=== PATIENT | male | born 1975 | race Caucasian/White ===

== ENCOUNTER → 2017-01-30 | Outpatient (REF) | payer OTHER ==
[~2017-01-30] MED LIST: No Historical Meds
== END ==
LOC: M SFHCLERA 10:23
PROVIDERS: ATTEND Physician Assistant
DX: Z00.00 Encounter for general adult medical examination without abnormal findings (principal)

== ENCOUNTER → 2017-01-31 | Outpatient (CLI) | payer OTHER ==
[2017-01-31 15:27] LABS: MEAN CORPUSCULAR HEMOGLOBIN 31.1 pg (27.0-33.0); MEAN CORPUSCULAR HGB CONC 33.6 g/dl (32.0-36.5); MEAN CORPUSCULAR VOLUME 92.5 fl (80.0-96.0); RED CELL DISTRIBUTION WIDTH 12.3 % (11.5-14.5); WHITE BLOOD COUNT 5.8 10^3/uL (4.0-10.0)
[2017-01-31 15:30] LABS: ALBUMIN 4.3 GM/DL (3.2-5.2); ALBUMIN/GLOBULIN RATIO 1.43 (1.00-1.93); ALKALINE PHOSPHATASE 63 U/L (45-117); ALT/SGPT 30 U/L (12-78); ANION GAP 7 MEQ/L (8-16); AST/SGOT 17 U/L (15-37); BILIRUBIN,TOTAL 0.8 MG/DL (0.2-1.0); BLOOD UREA NITROGEN 20 MG/DL (7-18); CALCIUM LEVEL 9.6 MG/DL (8.5-10.1); CARBON DIOXIDE LEVEL 31 MEQ/L (21-32); CHLORIDE LEVEL 102 MEQ/L (98-107); CHOLESTEROL LEVEL 137 MG/DL (<200); CREATININE FOR GFR 1.09 MG/DL (0.70-1.30); GLOMERULAR FILTRATION RATE > 60.0 (>60); GLUCOSE, FASTING 79 MG/DL (70-105); POTASSIUM SERUM 4.6 MEQ/L (3.5-5.1); SODIUM LEVEL 140 MEQ/L (136-145); TOTAL PROTEIN 7.3 GM/DL (6.4-8.2); TRIGLYCERIDES LEVEL 80 MG/DL (<150)
== END ==
LOC: M WUC 12:24
PROVIDERS: ATTEND Physician Assistant
DX: Z00.00 Encounter for general adult medical examination without abnormal findings (principal)

== ENCOUNTER → 2018-07-16 | Outpatient (REF) | payer OTHER ==
[2018-07-22 00:07] LABS: HSV TYPE I IgG SPECIFIC <0.91 index (0.00-0.90); HSV TYPE I IgM AB <1:10 titer (<1:10); HSV TYPE II IgG SPECIFIC 3.57 index (0.00-0.90); HSV TYPE II IgM ABY <1:10 titer (<1:10)
== END ==
LOC: M SFHCPLAZ 15:57
PROVIDERS: ATTEND Family Medicine
DX: K03.2 Erosion of teeth (principal)

== ENCOUNTER → 2018-09-16 | Outpatient (REF) | payer OTHER ==
[2018-09-16 15:49] LABS: ALBUMIN 4.2 GM/DL (3.2-5.2); ALT/SGPT 25 U/L (12-78); BILIRUBIN,TOTAL 0.7 MG/DL (0.2-1.0); BLOOD UREA NITROGEN 16 MG/DL (7-18); CALCIUM LEVEL 9.3 MG/DL (8.5-10.1); CARBON DIOXIDE LEVEL 32 MEQ/L (21-32); CHLORIDE LEVEL 105 MEQ/L (98-107); CREATININE FOR GFR 1.07 MG/DL (0.70-1.30); GLOMERULAR FILTRATION RATE > 60.0 (>60); GLUCOSE, FASTING 88 MG/DL (70-100); POTASSIUM SERUM 4.2 MEQ/L (3.5-5.1); SODIUM LEVEL 140 MEQ/L (136-145)
== END ==
LOC: M SFHCPLAZ 13:12
PROVIDERS: ATTEND Family Medicine
DX: B35.1 Tinea unguium (principal)

== ENCOUNTER → 2018-10-09 | Outpatient (CLI) | payer OTHER ==
--- NOTE | 2018-10-09 15:09 | REP ---
MRI brain without contrast: History: Resting tremor . Comparison study: December 04, 2011. Technique: Axial and sagittal imaging planes are utilized for T1 and T2-weighted scans. Sequences include spin-echo, fast spin echo, FLAIR, and diffusion weighted sequences. MRI findings: No bony calvarial lesion is seen. Craniocervical junction and upper cervical cord are normal in appearance. There is no MR evidence of significant paranasal sinus disease. No intraorbital abnormality is seen. There is again evidence of volume loss in the left occipital and posterior temporal lobes with enlargement of the occipital horn and body of the left ventricle unchanged from the 12/09/2011 prior study. Rene-white differentiation pattern is intact above and below the tentorium. There is no evidence of intracranial hemorrhage. No mass, infarction, extra-axial fluid collection or midline shift is seen. No abnormal white matter lesion is seen. Impression: Mild volume loss in the left occipital and temporal lobe again seen with enlargement of the occipital horn of the left lateral ventricle unchanged from the 2012 prior study. Otherwise negative noncontrast brain MRI study. Electronically Signed by Zhen Navarrete MD 10/09/2018 03:01 P
--- NOTE | 2018-10-09 15:27 | REP ---
MRI cervical spine without contrast: Limited study. History: Resting tremor. No comparison cervical spine imaging. Technique: T1 and T2-weighted sagittal images were accomplished although there is some motion artifact. The patient became claustrophobic and could not continue the scan. Only these two sequences were acquired. Findings: Cortical and medullary bone signal intensity are normal. Vertebral body heights are preserved. Alignment is normal. There is evidence of right lateral disc bulge at C3-4. No cord compression is seen. No cord lesion is noted. Impression: Limited imaging as above. Right lateral disc bulging with uncovertebral spurring suspected at C3-4. Electronically Signed by Zhen Navarrete MD 10/09/2018 03:37 P
== END ==
LOC: M PLARAD 11:30
PROVIDERS: ATTEND Family Medicine
DX: R25.9 Unspecified abnormal involuntary movements (principal); M50.20 Other cervical disc displacement, unspecified cervical region

== ENCOUNTER 2019-07-09 14:54 | Emergency (ER) | payer OTHER ==
[~2019-07-09] VITALS: Ht 198.1 cm; Wt 117.5 kg
--- NOTE | 2019-07-09 16:34 | REP ---
CT brain without contrast: History: Vision changes. Comparison MRI study of the brain is from October 09, 2018. Findings: Digital preliminary scouts radiograph is unremarkable. The bony calvarium is intact. Visualized paranasal sinuses are clear. No intraorbital abnormalities appreciated. On soft tissue window settings, there is asymmetry in the lateral ventricles again noted with the left occipital horn and the body of the left lateral ventricle larger than the right. This is unchanged from prior studies. There is no evidence of intracranial hemorrhage. No mass lesion is seen. No midline shift is observed. No extra-axial fluid collection is appreciated. Impression: No acute intracranial abnormality. Findings unchanged from comparison MRI study October 09, 2018. Electronically Signed by Zhen Navarrete MD 07/09/2019 04:46 P
[2019-07-09 16:35] LABS: BASO # 0.1 10^3/uL (0.0-0.2); BASO % 0.6 % (0.0-1.0); EOS # 0.5 10^3/uL (0.0-0.5); EOS % 5.8 % (0.0-3.0); HEMATOCRIT 44.2 % (42.0-52.0); HEMOGLOBIN 14.7 g/dl (13.5-17.5); LYMPH # 2.4 10^3/uL (1.5-5.0); LYMPH % 27.8 % (24.0-44.0); MEAN CORPUSCULAR HEMOGLOBIN 30.3 pg (27.0-33.0); MEAN CORPUSCULAR HGB CONC 33.3 g/dl (32.0-36.5); MEAN CORPUSCULAR VOLUME 91.1 fl (80.0-96.0); MONO # 0.7 10^3/uL (0.0-0.8); MONO % 7.7 % (0.0-5.0); NEUTROPHILS % 57.6 % (36.0-66.0); PLATELET COUNT, AUTOMATED 307 10^3/uL (150-450); RED BLOOD COUNT 4.85 10^6/uL (4.30-6.10); WHITE BLOOD COUNT 8.6 10^3/uL (4.0-10.0)
[2019-07-09 16:52] LABS: HEMOGLOBIN A1c 5.8 %
[2019-07-09 17:14] LABS: CALCIUM LEVEL 9.4 MG/DL (8.5-10.1); CREATININE FOR GFR 1.5 MG/DL (0.70-1.30); FREE T4 1.56 NG/DL (0.76-1.46); GLOMERULAR FILTRATION RATE 54.9 (>60); POTASSIUM SERUM 4.1 MEQ/L (3.5-5.1); THYROID STIMULATING HORMONE 0.495 uIU/ML (0.358-3.740)
[2019-07-09 18:07] VITALS: BP 128/83
== END 2019-07-09 18:07 | disposition home or self-care (01) ==
LOC: M ED 14:54
DX: H53.8 Other visual disturbances (principal); E07.9 Disorder of thyroid, unspecified; R79.89 Other specified abnormal findings of blood chemistry; G20 Parkinson's disease; Z88.8 Allergy status to other drugs, medicaments and biological substances; Z91.013 Allergy to seafood; Z91.018 Allergy to other foods

== ENCOUNTER 2019-07-19 08:29 | Inpatient (IN) | payer OTHER ==
[~2019-07-19] VITALS: Ht 188 cm; Wt 116.6 kg
[2019-07-19] MEDS ORDERED: NS 250 ML IV ONE (08:45)
[2019-07-19] MEDS: ALBUTEROL 90 MCG/ACT 8GM HFA INHALER INH SCH ×3 (08:45→09:20)
[2019-07-19] MEDS: DOCUSATE SODIUM 100 MG CAP PO SCH ×2 (09:00→20:26)
[2019-07-19] MEDS ORDERED: ENOXAPARIN 40 MG/0.4 ML SYRINGE (J1650) SC SCH (09:00)
[2019-07-19 09:10] LABS: BASO # 0.1 10^3/uL (0.0-0.2); BASO % 0.8 % (0.0-1.0); EOS # 0.5 10^3/uL (0.0-0.5); EOS % 5.7 % (0.0-3.0); HEMATOCRIT 40.9 % (42.0-52.0); HEMOGLOBIN 13.2 g/dl (13.5-17.5); LYMPH # 3.1 10^3/uL (1.5-5.0); LYMPH % 33.3 % (24.0-44.0); MEAN CORPUSCULAR HEMOGLOBIN 30.1 pg (27.0-33.0); MEAN CORPUSCULAR HGB CONC 32.3 g/dl (32.0-36.5); MEAN CORPUSCULAR VOLUME 93.4 fl (80.0-96.0); MONO # 0.6 10^3/uL (0.0-0.8); MONO % 5.9 % (0.0-5.0); NEUTROPHILS # 4.9 10^3/uL (1.5-8.5); NEUTROPHILS % 53.2 % (36.0-66.0); PLATELET COUNT, AUTOMATED 258 10^3/uL (150-450); RED BLOOD COUNT 4.38 10^6/uL (4.30-6.10); WHITE BLOOD COUNT 9.3 10^3/uL (4.0-10.0)
[2019-07-19] MEDS ORDERED: PROAAER10 INH (09:25)
[2019-07-19] MEDS ORDERED: AMAN100T PO (09:25)
[2019-07-19] MEDS ORDERED: MIRA0.254 PO (09:25)
[2019-07-19] MEDS ORDERED: COMMENTS (09:25)
[2019-07-19] MEDS ORDERED: AMOX875T PO (09:25)
[2019-07-19] MEDS ORDERED: ISOVUE-370 76% 100ML VIAL (Q9967) As Ordered ONE (09:27)
[2019-07-19] MEDS ORDERED: PIPERACILLIN/TAZOBACTAM SOD 4.5 GM in D5W MINI-BAG PLUS 50 ML IV ONE (09:30)
[2019-07-19 09:36] LABS: INR 1.01; PARTIAL THROMBOPLASTIN TIME 26.3 SECONDS (25.0-38.4)
[2019-07-19 09:39] LABS: D-DIMER QUANT 3084.2 ng/ml (<500)
[2019-07-19 09:47] LABS: ACETAMINOPHEN LEVEL < 2.0 UG/ML (10.0-30.0); ALBUMIN 4.1 GM/DL (3.2-5.2); ALT/SGPT 54 U/L (12-78); BILIRUBIN,DIRECT 0.2 MG/DL (0.0-0.2); BILIRUBIN,TOTAL 0.5 MG/DL (0.2-1.0); CK-MB VALUE MASS 2.4 NG/ML (<3.6); CPK CREATINE PHOSPHOKINASE 126 U/L (39-308); ETHYL ALCOHOL (ETHANOL) < 0.003 % (0.000-0.010); LDH LACTATE DEHYDROGENASE 206 U/L (87-241); NT-PRO BNP 49 PG/ML (<125); SALICYLATE LEVEL < 1.7 MG/DL (5.0-30.0); THYROID STIMULATING HORMONE 0.405 uIU/ML (0.358-3.740); THYROXINE (T4) 9.9 UG/DL (4.5-12.0); TOTAL PROTEIN 7.5 GM/DL (6.4-8.2); TROPONIN I < 0.02 NG/ML (< 0.10)
--- NOTE | 2019-07-19 10:07 | REP ---
CHEST, SINGLE VIEW: There is no evidence of acute infiltrate. No pleural effusion is seen. The heart is normal in size. The mediastinal silhouette is unremarkable. The visualized osseous structures are intact. IMPRESSION: No acute pulmonary disease. Electronically Signed by Jayy Rene MD 07/19/2019 03:14 P
--- NOTE | 2019-07-19 10:25 | REP ---
CT BRAIN WITHOUT CONTRAST: CT brain performed without IV contrast. Coronal reconstruction images are performed. Comparison 07/09/2019. There is stable chronic volume loss. No acute intracranial hemorrhage is seen. There is no midline shift or mass effect. Rene-white differentiation is well maintained. Bone window examination is unremarkable. Visualized paranasal sinuses and mastoid air cells are clear. IMPRESSION: Stable volume loss with no acute intracranial findings and no change since prior study of 07/09/2019. Electronically Signed by Jayy Rene MD 07/19/2019 03:15 P
--- NOTE | 2019-07-19 10:37 | REP ---
CT CHEST WITH IV CONTRAST: TECHNIQUE: Axial contrast enhanced images from the thoracic inlet to the upper abdomen using 100 mL Isovue 370 intravenous contrast material with multiplanar reformations. The lungs are clear with no infiltrate. There is no pneumothorax or pleural effusion. No pericardial effusion is seen. There is no mediastinal, hilar, or chest wall lymphadenopathy. The heart is normal in size. Thoracic aorta is normal in caliber with no dissection. Visualized osseous structures are intact. IMPRESSION: Negative CT of the chest with no abnormalities identified. Electronically Signed by Jayy Rene MD 07/19/2019 03:15 P
--- NOTE | 2019-07-19 10:47 | REP ---
CT ABDOMEN AND PELVIS WITH IV CONTRAST: TECHNIQUE: Axial contrast enhanced images from the lung bases to the pubic symphysis using 100 mL Isovue 370 intravenous contrast material with multiplanar reformations. The liver demonstrates a small calcified granuloma in the left lobe. No other liver abnormality is seen. Spleen is normal in size with no traumatic injury identified. Adrenals, pancreas, and kidneys are unremarkable. The abdominal aorta is normal in caliber with no aneurysm. There is no adenopathy. There is no free air or free fluid. There is no bowel wall thickening. The appendix is normal. No pelvic mass is seen. Urinary bladder is mildly distended and appears unremarkable. Visualized osseous structures appear intact. IMPRESSION: Negative CT abdomen and pelvis with no traumatic abnormalities identified. No free fluid. Electronically Signed by Jayy Rene MD 07/19/2019 03:15 P
[2019-07-19] MEDS ORDERED: MOM 30ML SUSPENSION UDC PO PRN (11:30)
[2019-07-19 13:00] VITALS: BP 145/72
[2019-07-19] MEDS ORDERED: ALBUTEROL 90 MCG/ACT 8GM HFA INHALER INH PRN (13:15)
[2019-07-19 13:21] LABS: C REACTIVE PROTEIN QUANTITATIV 0.3 MG/DL (0.00-0.30); CK-MB VALUE MASS 2.5 NG/ML (<3.6); MB/CK RELATIVE INDEX 0.95 (< OR =4); TROPONIN I 0.02 NG/ML (< 0.10)
[2019-07-19 13:41] LABS: AMPHETAMINES LEVEL URINE NEGATIVE (NEGATIVE); BARBITURATES URINE NEGATIVE (NEGATIVE); BENZODIAZEPINES URINE NEGATIVE (NEGATIVE); CANNABINOIDS URINE NEGATIVE (NEGATIVE); COCAINE METABOLITE URINE NEGATIVE (NEGATIVE); METHADONE URINE NEGATIVE (NEGATIVE); OPIATES URINE NEGATIVE (NEGATIVE); PHENCYCLIDINE URINE NEGATIVE (NEGATIVE)
[2019-07-19] MEDS ORDERED: MORPHINE 2 MG/ML 1ML VIAL (J2270) IV PRN (14:00)
--- NOTE | 2019-07-19 15:09 | REP ---
RIGHT HUMERUS, THREE VIEWS: There is no evidence of an acute fracture, dislocation or intrinsic bone disease. IMPRESSION: No fracture or dislocation. Electronically Signed by Jayy Rene MD 07/19/2019 03:21 P
--- NOTE | 2019-07-19 15:44 | HPEPDOC ---
[facility] Medical History & Physical Date of Admission Jul 19, 2019 Date of Service: Jul 19, 2019 Primary Care Physician: KAE LEES DO Attending Physician: RM DUONG DO History and Physical CHIEF COMPLAINT: Fall at home HISTORY OF PRESENT ILLNESS: Kevin Bower is a 43 YO M with history of Parkinsons disease who presents via EMS for unwitnessed fall at home. ED staff report that he was very agitated and was found to have oxygen saturation in the low 80s on arrival. Per EMS, he was found to have fallen at home from the bed to the floor. He does not remember any of the events surrounding his fall. I think he remembers is getting into the ambulance and arriving at the hospital. He denies any recent fevers, chills, nausea, vomiting or diarrhea. He does report that he has sharp, aching chest pain in his lower chest that radiates to his back. This has been ongoing for some time now. He is unsure whether he has shortness of breath, but he does state that he gets this pain at the very end of inspiration. The chest pain is not reproducible by palpation. The patient denies any cardiac history. PAST MEDICAL HISTORY: 1. Parkinson's disease PAST SURGICAL HISTORY: none SOCIAL HISTORY: Former smoker. Quit 03/2018. Denies alcohol, drugs FAMILY HISTORY: Father: alive 64 yrs, no known medical problems Mother: alive 61 yrs, Bone cancer; Asthma; breast cancer, diagnosed with Hypertension, Other malignant neoplasm of unspecified site Siblings: alive 30 yrs, Seizures 1 sister(s) . GF - brain tumor; Aunt - colon cancer, Mother -breast CA, sarcodosis, sister- ep ilepsy. ALLERGIES: Please see below. REVIEW OF SYSTEMS: CONSTITUTIONAL: Feels well. No fever or chills HEENT: denies vision changes, no sinus problems, denies any trouble swallowing CARDIOVASCULAR: Reports sharp, aching chest pain that radiates to his back RESPIRATORY: Denies any shortness of breath GENITOURINARY: No dysuria MUSCULOSKELETAL: Denies any joint/muscle pain GASTROINTESTINAL: Denies abdominal pain, no nausea/vomiting/diarrhea SKIN: No new rashes or lesions NEUROLOGICAL: No loss of sensation PSYCHIATRIC: Reports normal mood, no delusions or hallucinations ENDOCRINE: No hot/cold intolerance HEMATOLOGIC/LYMPHATIC: No easy bruising, no lumps/bumps ALLERGIC/IMMUNOLOGIC: No sinus symptoms HOME MEDICATIONS: Please see below. PHYSICAL EXAMINATION: VITAL SIGNS: Please see below. GENERAL APPEARANCE: Laying in bed, appears stated age, no acute distress, calm, cooperative HEENT: Very poor dentition, EOMI, PERRLA, neck is supple with no thyromegaly or lymphadenopathy RESPIRATORY: Lungs are clear to auscultation bilaterally with no adventitious breath sounds appreciated CARDIOVASCULAR: no JVD, RRR,no murmurs/rubs/gallops ABDOMEN: Soft, nontender to palpation in all four quadrants, no masses/organomegaly EXTREMITIES: no clubbing, cyanosis or edema noted NEUROLOGICAL: Fine tremor in both upper extremities, strength 5 out of 5 in both upper and lower extremities, otherwise cranial nerves II through XII are intact PSYCHIATRIC: normal mood/affect Skin: No rashes or ulcers. LN: No significant cervical or inguinal lymphadenopathy LABORATORY DATA: See below. IMAGING: CT BRAIN WITHOUT CONTRAST: CT brain performed without IV contrast. Coronal reconstruction images are performed. Comparison 07/09/2019. There is stable chronic volume loss. No acute intracranial hemorrhage is seen. There is no midline shift or mass effect. Rene-white differentiation is well maintained. Bone window examination is unremarkable. Visualized paranasal sinuses and mastoid air cells are clear. IMPRESSION: Stable volume loss with no acute intracranial findings and no change since prior study of 07/09/2019. CXR: CHEST, SINGLE VIEW: There is no evidence of acute infiltrate. No pleural effusion is seen. The heart is normal in size. The mediastinal silhouette is unremarkable. The visualized osseous structures are intact. IMPRESSION: No acute pulmonary disease. CT CHEST WITH IV CONTRAST: TECHNIQUE: Axial contrast enhanced images from the thoracic inlet to the upper abdomen using 100 mL Isovue 370 intravenous contrast material with multiplanar reformations. The lungs are clear with no infiltrate. There is no pneumothorax or pleural effusion. No pericardial effusion is seen. There is no mediastinal, hilar, or chest wall lymphadenopathy. The heart is normal in size. Thoracic aorta is normal in caliber with no dissection. Visualized osseous structures are intact. IMPRESSION: Negative CT of the chest with no abnormalities identified. CT ABDOMEN AND PELVIS WITH IV CONTRAST: TECHNIQUE: Axial contrast enhanced images from the lung bases to the pubic symphysis using 100 mL Isovue 370 intravenous contrast material with multiplanar reformations. The liver demonstrates a small calcified granuloma in the left lobe. No other liver abnormality is seen. Spleen is normal in size with no traumatic injury identified. Adrenals, pancreas, and kidneys are unremarkable. The abdominal aorta is normal in caliber with no aneurysm. There is no adenopathy. There is no free air or free fluid. There is no bowel wall thickening. The appendix is normal. No pelvic mass is seen. Urinary bladder is mildly distended and appears unremarkable. Visualized osseous structures appear intact. IMPRESSION: Negative CT abdomen and pelvis with no traumatic abnormalities identified. No free fluid. MICROBIOLOGY: Please see below. ASSESSMENT: This is a 43-year-old male with history of Parkinson's disease who presents to ED following unwitnessed fall at home. He was found to be very agitated and is now requiring 2 L oxygen nasal cannula. He was also found to be positive for human rhinovirus, elevated d-dimer, elevated lactic acid, concerning for possible coinfection with coronavirus. He will remain in negative pressure room, as tests results pending. PLAN: 1. Shortness of breath, elevated D-dimer and lactate: concerning for COVID-19 infection -CT chest with IV contrast negative for any abnormality but CTA was not performed -Given elevated d-dimer, will need further workup for possible PE given that the patient has chest pain and oxygen requirement. He is not tachycardic at this time. Will start patient on empiric anticoagulation for PE with Eliquis 2.5 twice a day. -Respiratory viral panel found to be positive for human rhinovirus. While there are reports of coinfection with COVID-19, the coinfection, right is more apparent with influenza virus. Nevertheless, we will still check coronavirus PCR. -Isolation precautions for now. -POC lactate found to be 3.29. Patient received dose of Zosyn and IVF in ED. Follow up lactic acid 1.7 2. 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 Unable to get a clear history as unable to contact patient's girlfriend. -Will resume Parkinson's medications. 3. Hyperammonemia: -Patient's ammonia level was found to be elevated at 91 with no history of recent alcohol use. Liver enzymes are within normal limits. Difficult to determine whether patient had flapping tremor due to existing tremor from Parkinson's disease. -Alcohol level WNL 4. Parkinson's disease, ?with dementia?: -Continue Mirapex, Amantadine DISPO: Pending CTA tomorrow (because unable to do 2 contrast studies in same day) and PT/OT. Vital Signs Vital Signs Date Time Temp Pulse Resp B/P (MAP) Pulse Ox O2 Delivery O2 Flow Rate FiO2 07/19/19 10:45 80 18 127/66 (86) 99 Nasal Cannula 2.0 07/19/19 10:30 97.1 Laboratory Data Labs 24H Laboratory Tests 2 07/19/19 08:48: POC Glucose (Misc Panel) 103, POC Sodium (Misc Panel) 144, POC Potassium (Misc Panel) 3.3L, POC Chloride (Misc Panel) 106, POC Total CO2 (Misc Panel) 21.0L, POC Blood Urea Nitrogen (Misc Panel 17, POC Ionized Calcium (Misc Panel) 4.9, POC Creatinine (Misc Panel) 1.3, POC Hematocrit (Misc Panel) 40.0 07/19/19 08:54: POC Total CO2 (Misc Panel) 24.0, POC pH (Misc Panel) 7.314L, POC Base Excess (Misc Panel) -4.0L, POC Saturated Percent O2 (Misc) 96, POC pO2 (Misc Panel) 86.0, POC pCO2 (Misc Panel) 44.3, POC HCO3 (Misc Panel) 22.5 07/19/19 08:55: Immature Granulocyte % (Auto) 1.1, Neutrophils (%) (Auto) 53.2, Lymphocytes (%) (Auto) 33.3, Monocytes (%) (Auto) 5.9H, Eosinophils (%) (Auto) 5.7H, Basophils (%) (Auto) 0.8, Neutrophils # (Auto) 4.9, Lymphocytes # (Auto) 3.1, Monocytes # (Auto) 0.6, Eosinophils # (Auto) 0.5, Basophils # (Auto) 0.1, Nucleated Red Bl ood Cells % (auto) 0.0, Prothrombin Time 13.0, Prothromb Time International Ratio 1.01, Activated Partial Thromboplast Time 26.3, D-Dimer, Quantitative 3084.20H, Total Bilirubin 0.5, Direct Bilirubin 0.2, Aspartate Amino Transf (AST/SGOT) 29, Alanine Aminotransferase (ALT/SGPT) 54, Alkaline Phosphatase 87, Ammonia 91H, Lactate Dehydrogenase 206, Total Creatine Kinase 126, Creatine Kinase MB 2.4, Creatine Kinase MB Relative Index 1.90, Troponin I < 0.02, C- Reactive Protein, Quantitative 0.30, BZ-Yop-F-Type Natriuretic Peptide 49, Total Protein 7.5, Albumin 4.1, Albumin/Globulin Ratio 1.21, Thyroid Stimulating Hormone (TSH) 0.405, Thyroxine (T4) 9.9, Salicylates Level < 1.7L, Acetaminophen Level < 2.0L, Ethyl Alcohol Level < 0.003 07/19/19 09:19: POC Lactate (Misc Panel) 3.29*H CBC/BMP Laboratory Tests 07/19/19 08:55 Microbiology Microbiology 07/19/19 Blood Culture, Received Pending 07/19/19 Respiratory Panel (PCR) - Final, Complete Human Rhinovirus/Enterovirus 07/19/19 Blood Culture, Received Pending Home Medications Scheduled Amantadine HCl (Amantadine) 100 Mg Tablet, 200 MG PO BID Amoxicillin (Amoxicillin) 875 Mg Tablet, 875 MG PO BID PICKED UP 10 DAY SUPPLY FROM PHARMACY ON 07/07/2019 Pramipexole Di-HCl (Mirapex) 0.25 Mg Tablet, 0.25 MG PO TID Scheduled PRN Albuterol Sulfate (Proair Hfa) 8.5 Gm Hfa.aer.ad, 2 PUFF INH Q4H PRN for SOB/WHEEZING Miscellaneous Medications [Comments] PT. MED LIST MADE WITH HELP OF HEALTH CLINIC VISIT AND EXTERNAL MED HISTORY. Allergies Coded Allergies: Egg Derived (Verified Allergy, Unknown, 07/09/19) Tuna (Verified Allergy, Unknown, 02/18/11) oats (Verified Allergy, Unknown, 07/09/19) thioridazine (Verified Allergy, Unknown, 07/09/19) A-FIB/CHADSVASC A-FIB History Current/History of A-Fib/PAF?: No GME ATTESTATION GME ATTESTATION My faculty preceptor for this patient encounter was physically present during the encounter and was fully available. All aspects of the patient interview, examination, medical decision making process, and medical care plan development were reviewed and approved by the faculty preceptor. The faculty preceptor is aware and concurs with the plan as stated in the body of this note and will attest to such by his/her cosignature. HERIBERTO GANN MD Jul 19, 2019 11:57
[2019-07-19] MEDS ORDERED: POTASSIUM CHLORIDE 10 MEQ SR TABLET PO ONE (15:45)
[2019-07-19] MEDS: PRAMIPEXOLE 0.25 MG TAB PO SCH ×2 (16:20→20:27)
--- NOTE | 2019-07-19 16:40 | ECGEPIP ---
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
--- NOTE | 2019-07-19 16:43 | ECGEPIP ---
[facility] - ED Test Date: 2019-07-19 Pat Name: HUMBLE MULLINS Department: Room: 0102 Gender: Male Aquatic Physiotherapist: BALJEET : 1975 Requested By: Diann Salazar Order Number: [id number] Reading MD: Diann Salazar Measurements Intervals [place] Rate: 68 P: 37 [place]: 171 QRS: 19 QRSD: 94 T: 40 QT: 386 QTc: 412 Interpretive Statements SINUS RHYTHM POSSIBLE LEFT VENTRICULAR HYPERTROPHY NONSPECIFIC ST T WAVE CHANGES CW 07/19/[address] T WAVE CHANGES Electronically Signed on 07-19-2019 16:43:04 EDT by Dinan Salazar
[2019-07-19] MEDS: ACETAMINOPHEN TAB 650MG DOSE (2X325MG) PO PRN (20:26)
[2019-07-19] MEDS: APIXABAN 2.5 MG TAB (ELIQUIS) PO SCH (20:26)
[2019-07-19] MEDS: AMANTADINE 100MG TABLET PO SCH (20:34)
--- NOTE | 2019-07-19 21:34 | ECHO ---
DATE OF PROCEDURE: 07/19/2019 REFERRING PHYSICIAN: Dr. Naya Brewer INDICATION: Chest pain, unspecified. HEIGHT: 188 cm WEIGHT: 116 kg 2D MEASUREMENTS: Left atrium: 3.4 cm Ventricular septum: 1.15 cm Posterior wall: 1.24 cm Left ventricle diastole: 4.9 cm Aortic root: 3.2 cm Aortic annulus: 2.3 cm Inferior vena cava: 2.4 cm with normal respiratory variation. Suggestive of central venous pressure (CVP) 5-10 mmHg. DOPPLER MEASUREMENTS: Aortic valve velocity: 121 cm/s LVOT velocity: 105 cm/s LVOT VTI 19.9 cm No aortic regurgitation. No aortic stenosis. No mitral regurgitation. No mitral stenosis. Mitral E velocity: 83.4 cm/s Mitral A velocity; 91.8 cm/s Mitral deceleration time: 187 milliseconds Very mild tricuspid regurgitation. No pulmonic regurgitation. Pulmonary artery systolic pressure: 11 mmHg MITRAL ANNULAR TISSUE DOPPLER: E prime septal: 8.2 cm/s E prime lateral: 11.0 cm/s DESCRIPTION: Rhythm was sinus. This was a moderately technically difficult echocardiogram. This was a 2D, M-mode, color flow Doppler and pulse wave Doppler examination and included mitral annular tissue Doppler. CONCLUSIONS: 1. Borderline concentric left ventricle hypertrophy. Normal regional left ventricular (LV) wall motion and wall thickening. Normal LV systolic function. Left ventricular ejection fraction (LVEF) 65% by visual estimate. Normal LV diastolic function observed at the observed heart rate. 2. No pericardial effusion. 3. Otherwise normal appearing echocardiogram Doppler. 4. Moderately technically difficult echocardiogram. [facility]
[2019-07-19 22:00] VITALS: BP 120/71
[2019-07-20] MEDS: ACETAMINOPHEN TAB 650MG DOSE (2X325MG) PO PRN (04:07)
[2019-07-20 06:00] VITALS: BP 133/81
[2019-07-20 06:00] LABS: HEMATOCRIT 37.8 % (42.0-52.0); HEMOGLOBIN 12.4 g/dl (13.5-17.5); MEAN CORPUSCULAR HEMOGLOBIN 30.8 pg (27.0-33.0); MEAN CORPUSCULAR HGB CONC 32.8 g/dl (32.0-36.5); PLATELET COUNT, AUTOMATED 231 10^3/uL (150-450); RED BLOOD COUNT 4.02 10^6/uL (4.30-6.10); WHITE BLOOD COUNT 7.6 10^3/uL (4.0-10.0)
[2019-07-20 06:29] LABS: ALBUMIN 3.7 GM/DL (3.2-5.2); ALT/SGPT 44 U/L (12-78); BILIRUBIN,TOTAL 0.6 MG/DL (0.2-1.0); BLOOD UREA NITROGEN 16 MG/DL (7-18); CALCIUM LEVEL 8.7 MG/DL (8.5-10.1); CARBON DIOXIDE LEVEL 30 MEQ/L (21-32); CHLORIDE LEVEL 108 MEQ/L (98-107); CREATININE FOR GFR 1.14 MG/DL (0.70-1.30); GLOMERULAR FILTRATION RATE > 60.0 (>60); GLUCOSE, FASTING 111 MG/DL (70-100); MAGNESIUM LEVEL 2.4 MG/DL (1.8-2.4); POTASSIUM SERUM 3.5 MEQ/L (3.5-5.1); SODIUM LEVEL 142 MEQ/L (136-145); TOTAL PROTEIN 7.1 GM/DL (6.4-8.2)
[2019-07-20] MEDS ORDERED: PERC5TAB12 PO (07:41)
[2019-07-20 07:50] VITALS: BP 136/85
[2019-07-20] MEDS ORDERED: PERCOCET 5MG/325MG TAB PO ONE (08:00)
[2019-07-20] MEDS ORDERED: oxyCODONE 5MG TAB PO ONE (08:00)
[2019-07-20 08:09] VITALS: BP 136/85
[2019-07-20] MEDS: AMANTADINE 100MG TABLET PO SCH (09:00)
[2019-07-20] MEDS ORDERED: ACETAMINOPHEN *IV* 1,000 MG in IV 1 EA IV ONE (09:00)
[2019-07-20] MEDS: DOCUSATE SODIUM 100 MG CAP PO SCH (09:01)
[2019-07-20] MEDS: PRAMIPEXOLE 0.25 MG TAB PO SCH (09:01)
[2019-07-20] MEDS: APIXABAN 2.5 MG TAB (ELIQUIS) PO SCH (09:02)
[2019-07-20] MEDS ORDERED: ISOVUE-370 76% 100ML VIAL (Q9967) As Ordered ONE (09:20)
--- NOTE | 2019-07-20 10:56 | REP ---
REASON FOR EXAM: Chest pain. COMPARISON EXAM: Standard contrast enhanced chest CT of 07/19/2019 which was within normal limits. There is less than optimal visualization of the pulmonary arterial opacification with contrast. No definite abnormal focal filling defects are seen in the pulmonary arterial system that would be considered consistent with significant sized pulmonary emboli. There are no pleural or pericardial effusions. The imaged upper abdomen and imaged osseous structures are within normal limits. Evaluation of the lung corbin show no significant changes from yesterday. Slight bibasilar subsegmental atelectatic changes are noted status quo. IMPRESSION: No definite evidence of pulmonary emboli as described above. No definite evidence of acute disease. Electronically Signed by Jovon Baca DO 07/20/2019 11:53 A
--- NOTE | 2019-07-20 15:58 | DS.PDOC ---
Discharge Summary General Date of Admission Jul 19, 2019 at 11:19 Date of Discharge July 20, 2019 Discharge Summary DISCHARGE DIAGNOSES: Acute Upper Respiratory Infection due to Human rhinovirus/enterovirus Back pain s/p fall Parkinson's Disease DISCHARGE MEDICATIONS: Pls see below DISCHARGE INSTRUCTIONS: Health Department contacted by movie shot camera operator to contact pt on result of COVID-19. Pt to continue on self-isolation. HOSPITAL COURSE: This is a 43-year-old male with history of Parkinson's disease was brought in to the ER with an unwitnessed fall at home, found in the ER to have 88% O2sat on room air, and admitted for further evaluation. Acute Upper Respiratory Tract Infection with human rhinovirus and enterovirus -oxygen saturation of 99% On Room Air at hospital discharge -elevated D-dimer and lactate: concerning for COVID-19 infection -CT chest with IV contrast negative for any abnormality -07/20/19 CTA : NEGATIVE for pulmonary embolism or pneumonia. -Given elevated d-dimer, pt was started on empiric anticoagulation for PE with Eliquis 2.5 twice a day on 07/19/19 and discontinued on 07/20/19 when CTA chest was NEGATIVE for PE. -Respiratory viral panel found to be positive for human rhinovirus. -POC lactate found to be 3.29. Patient received dose of Zosyn and IVF in ED. Follow up lactic acid 1.7 -antibiotics were discontinued after negative CT chest showed no acute pneumonia, afebrile and no white count. 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 Unable to get a clear history as unable to contact patient's girlfriend. - resumed Parkinson's medications. -Outpt fu with his neurologist. Hyperammonemia: -Patient's ammonia level was found to be elevated at 91 with no history of recent alcohol use. Liver enzymes are within normal limits. Difficult to determine whether patient had flapping tremor due to existing tremor from Parkinson's disease. -Alcohol level WNL -mental status was normal Parkinson's disease -Continue Mirapex, Amantadine -outpt fu with his neurologist within 7days to evaluate falls at home. DISCHARGE PHYSICAL EXAMINATION: VITAL SIGNS: Please see below. GENERAL APPEARANCE:AAO x 3 speaks in full sentences. no conversational dyspnea HEENT: Anicteric. Very poor dentition, EOMI, PERRLA, neck is supple with no thyromegaly or lymphadenopathy RESPIRATORY: AEBE CTAB. no rhonchi. no rales CARDIOVASCULAR: S1S2, no JVD, RRR,no murmurs/rubs/gallops ABDOMEN: Soft, nontender to palpation in all four quadrants, no masses/organomegaly EXTREMITIES: no clubbing, cyanosis or edema noted NEUROLOGICAL: Fine tremor in both upper extremities, strength 5 out of 5 in both upper and lower extremities, otherwise cranial nerves II through XII are intact DISCHARGE LABORATORY DATA/MICROBIOLOGY: See below. 07/19/19 ECHO: 1. Borderline concentric left ventricle hypertrophy. Normal regional left ventricular (LV) wall motion and wall thickening. Normal LV systolic function. Left ventricular ejection fraction (LVEF) 65% by visual estimate. Normal LV diastolic function observed at the observed heart rate. 2. No pericardial effusion. 3. Otherwise normal appearing echocardiogram Doppler. 4. Moderately technically difficult echocardiogram. DD: Aashish Key MD [facility] 07/19/192104 DT: [facility] 07/19/192120 IMAGIN07/20/19 CT CHEST ANGIO RULE OUT PE: REASON FOR EXAM: Chest pain. COMPARISON EXAM: Standard contrast enhanced chest CT of 07/19/2019 which was within normal limits. There is less than optimal visualization of the pulmonary arterial opacification with contrast. No definite abnormal focal filling defects are seen in the pulmonary arterial system that would be considered consistent with significant sized pulmonary emboli. There are no pleural or pericardial effusions. The imaged upper abdomen and imaged osseous structures are within normal limits. Evaluation of the lung corbin show no significant changes from yesterday. Slight bibasilar subsegmental atelectatic changes are noted status quo. IMPRESSION: No definite evidence of pulmonary emboli as described above. No definite evidence of acute disease. Electronically Signed by Jovon Baca DO 07/20/2019 11:53 A DD: Jovon Baca MD, DO 07/20/19 1008 DT: [facility] 07/20/19 1056 DS: IZZY 07/20/19 1153 07/20/[address] BRAIN WITHOUT CONTRAST: CT brain performed without IV contrast. Coronal reconstruction images are performed. Comparison 07/09/2019. There is stable chronic volume loss. No acute intracranial hemorrhage is seen. There is no midline shift or mass effect. Rene-white differentiation is well maintained. Bone window examination is unremarkable. Visualized paranasal sinuses and mastoid air cells are clear. IMPRESSION: Stable volume loss with no acute intracranial findings and no change since prior study of 07/09/2019. CXR: CHEST, SINGLE VIEW: There is no evidence of acute infiltrate. No pleural effusion is seen. The heart is normal in size. The mediastinal silhouette is unremarkable. The visualized osseous structures are intact. IMPRESSION: No acute pulmonary disease. CT CHEST WITH IV CONTRAST: TECHNIQUE: Axial contrast enhanced images from the thoracic inlet to the upper abdomen using 100 mL Isovue 370 intravenous contrast material with multiplanar reformations. The lungs are clear with no infiltrate. There is no pneumothorax or pleural effusion. No pericardial effusion is seen. There is no mediastinal, hilar, or chest wall lymphadenopathy. The heart is normal in size. Thoracic aorta is normal in caliber with no dissection. Visualized osseous structures are intact. IMPRESSION: Negative CT of the chest with no abnormalities identified. CT ABDOMEN AND PELVIS WITH IV CONTRAST: TECHNIQUE: Axial contrast enhanced images from the lung bases to the pubic symphysis using 100 mL Isovue 370 intravenous contrast material with multiplanar reformations. The liver demonstrates a small calcified granuloma in the left lobe. No other liver abnormality is seen. Spleen is normal in size with no traumatic injury identified. Adrenals, pancreas, and kidneys are unremarkable. The abdominal aorta is normal in caliber with no aneurysm. There is no adenopathy. There is no free air or free fluid. There is no bowel wall thickening. The appendix is normal. No pelvic mass is seen. Urinary bladder is mildly distended and appears unremarkable. Visualized osseous structures appear intact. IMPRESSION: Negative CT abdomen and pelvis with no traumatic abnormalities identified. No free fluid. TIME SPENT ON HOSPITAL DISCHARGE: 30 MIN Vital Signs/I&Os Vital Signs Date Time Temp Pulse Resp B/P (MAP) Pulse Ox O2 Delivery O2 Flow Rate FiO2 07/20/19 12:00 87 16 99 Room Air 07/20/19 08:09 97.6 136/85 (102) 07/20/19 06:00 2.0 I&O- Last 24 Hours up to 6 AM 07/20/19 05:59 Intake Total 300 ml Output Total 400 ml Balance -100 ml Laboratory Data Labs 24H Laboratory Tests 2 07/20/19 05:39: Nucleated Red Blood Cells % (auto) 0.0, Anion Gap 4L, Glomerular Filtration Rate > 60.0, Calcium Level 8.7, Magnesium Level 2.4, Total Bilirubin 0.6, Aspartate Amino Transf (AST/SGOT) 23, Alanine Aminotransferase (ALT/SGPT) 44, Alkaline Phosphatase 76, Total Protein 7.1, Albumin 3.7, Albumin/Globulin Ratio 1.09 CBC/BMP Laboratory Tests 07/20/19 05:39 Microbiology Microbiology 07/19/19 Blood Culture - Preliminary, Resulted No growth after 24 hours . All specim... 07/19/19 Respiratory Panel (PCR) - Final, Complete Human Rhinovirus/Enterovirus 07/19/19 Blood Culture - Preliminary, Resulted No growth after 24 hours . All specim... 07/19/19 Coronavirus COVID-19 PCR (JORDAN), Received Pending Discharge Medications Scheduled Amantadine HCl (Amantadine) 100 Mg Tablet, 200 MG PO BID, (Reported) Amoxicillin (Amoxicillin) 875 Mg Tablet, 875 MG PO BID, (Reported) PICKED UP 10 DAY SUPPLY FROM PHARMACY ON 07/07/2019 Pramipexole Di-HCl (Mirapex) 0.25 Mg Tablet, 0.25 MG PO TID, (Reported) Scheduled PRN Albuterol Sulfate (Proair Hfa) 8.5 Gm Hfa.aer.ad, 2 PUFF INH Q4H PRN for SOB/WHEEZING, (Reported) Oxycodone HCl/Acetaminophen (Percocet 5-325 mg Tablet) 1 Each Tablet, 1 TAB PO BIDP PRN for pain Miscellaneous Medications [Comments] , (Reported) PT. MED LIST MADE WITH HELP OF HEALTH CLINIC VISIT AND EXTERNAL MED HISTORY. Allergies Coded Allergies: Egg Derived (Verified Allergy, Unknown, 07/09/19) Tuna (Verified Allergy, Unknown, 02/18/11) oats (Verified Allergy, Unknown, 07/09/19) thioridazine (Verified Allergy, Unknown, 07/09/19) GAL LYNCH MD Jul 20, 2019 14:56
== END 2019-07-20 13:18 | disposition home or self-care (01) | DRG 113 ==
LOC: M ED 08:29 → M ED INP 11:19 → ENRESERVTM 12:08 → ENRESERVDT 12:08 → M MS5PR 13:39
PROVIDERS: ADMIT Internal Medicine; ATTEND General Practice
DX: J00 Acute nasopharyngitis [common cold] (principal); G20 Parkinson's disease; B97.19 Other enterovirus as the cause of diseases classified elsewhere; B97.89 Other viral agents as the cause of diseases classified elsewhere; Z91.018 Allergy to other foods; Z91.012 Allergy to eggs; Z88.8 Allergy status to other drugs, medicaments and biological substances; Z79.899 Other long term (current) drug therapy

== ENCOUNTER → 2019-10-14 | Outpatient (CLI) | payer OTHER ==
[~2019-10-14] MED LIST changes: +AMAN100T PO; +AMOX875T PO; +COMMENTS; +MIRA0.254 PO; +NAPR220C14 PO; +PERC5TAB12 PO; +PROAAER10 INH
--- NOTE | 2019-10-14 15:06 | REPPI ---
Seven views lumbar spine and three views thoracic spine: 10/14/2019. Indication: Thoracolumbar pain. Comparison: CT dated 07/20/2019. Findings: Chronic appearing mild superior endplate central compression deformities are redemonstrated at T5, T7 and T8. There is a new indeterminate minimal compression of the T6 superior endplate. Clinical correlation is required. The lumbar spine does not demonstrate evidence of fracture. There is no lumbar spine instability demonstrated on dynamic testing. There is no subluxation or dislocation throughout. No lytic or blastic lesions are present. Impression: Age indeterminate minimal compression of the superior T6 endplate. Chronic mild superior endplate compression deformities of T5, T7 and T8. Electronically Signed by Deion Powell DO 10/14/2019 02:58 P
== END ==
LOC: M PLAIMG 14:10
PROVIDERS: ATTEND Family Medicine
DX: M54.6 Pain in thoracic spine (principal); M48.54XA Collapsed vertebra, not elsewhere classified, thoracic region, initial encounter for fracture

== ENCOUNTER 2019-10-20 15:52 | Emergency (ER) | payer OTHER ==
[~2019-10-20] VITALS: Ht 200.7 cm; Wt 121.4 kg
[~2019-10-20 15:52] MED LIST changes: -NAPR220C14 PO
--- NOTE | 2019-10-20 17:09 | REP ---
Right shoulder series: Three views. History: Pain, possible dislocation. Comparison with overall radiographs are from July 19, 2019. Findings: The right glenohumeral and acromioclavicular joints are normally aligned. No fracture or subluxation is seen. Periarticular soft tissues are unremarkable. Impression: Negative right shoulder radiographs. Electronically Signed by Zhen Navarrete MD 10/20/2019 05:00 P
[2019-10-20 17:17] VITALS: BP 125/79
== END 2019-10-20 17:20 | disposition home or self-care (01) ==
LOC: M ED 15:52
DX: M25.511 Pain in right shoulder (principal); G20 Parkinson's disease; Z79.899 Other long term (current) drug therapy; Z91.012 Allergy to eggs; Z91.013 Allergy to seafood; Z91.018 Allergy to other foods

== ENCOUNTER → 2019-10-25 | Outpatient (REF) | payer OTHER ==
[~2019-10-25] MED LIST changes: +KEPP1TAB2 PO; +NAPR220C14 PO
[2019-10-25 13:40] LABS: BASO # 0.1 10^3/uL (0.0-0.2); EOS # 0.5 10^3/uL (0.0-0.5); EOS % 6.3 % (0.0-3.0); HEMATOCRIT 43.9 % (42.0-52.0); HEMOGLOBIN 14.4 g/dl (13.5-17.5); LYMPH # 2.4 10^3/uL (1.5-5.0); LYMPH % 33.5 % (24.0-44.0); MEAN CORPUSCULAR HEMOGLOBIN 30.4 pg (27.0-33.0); MEAN CORPUSCULAR HGB CONC 32.8 g/dl (32.0-36.5); MEAN CORPUSCULAR VOLUME 92.6 fl (80.0-96.0); MONO # 0.6 10^3/uL (0.0-0.8); MONO % 8.7 % (0.0-5.0); NEUTROPHILS # 3.7 10^3/uL (1.5-8.5); NEUTROPHILS % 50.2 % (36.0-66.0); PLATELET COUNT, AUTOMATED 265 10^3/uL (150-450); RED BLOOD COUNT 4.74 10^6/uL (4.30-6.10); WHITE BLOOD COUNT 7.3 10^3/uL (4.0-10.0)
[2019-10-25 15:23] LABS: ALBUMIN 4.7 GM/DL (3.2-5.2); BILIRUBIN,TOTAL 0.5 MG/DL (0.2-1.0); CALCIUM LEVEL 9.9 MG/DL (8.5-10.1); CREATININE FOR GFR 1.44 MG/DL (0.70-1.30); GLOMERULAR FILTRATION RATE 57.6 (>60); POTASSIUM SERUM 4.9 MEQ/L (3.5-5.1); TOTAL PROTEIN 8.8 GM/DL (6.4-8.2)
== END ==
LOC: M SFHCLERA 11:32
PROVIDERS: ATTEND Family Medicine
DX: E72.20 Disorder of urea cycle metabolism, unspecified (principal)

== ENCOUNTER → 2020-02-04 | Outpatient (CLI) | payer OTHER ==
[~2020-02-04] MED LIST changes: -KEPP1TAB2 PO
== END ==
LOC: M LABSMTC 09:36
PROVIDERS: ATTEND Anesthesiology
DX: Z01.812 Encounter for preprocedural laboratory examination (principal); Z20.828 Contact with and (suspected) exposure to other viral communicable diseases
CPT/HCPCS: C9803; U0003

== ENCOUNTER 2020-02-09 06:15 | Day surgery (SDC) | payer OTHER ==
[~2020-02-09] VITALS: Ht 195.6 cm; Wt 121.7 kg
[~2020-02-09 06:15] MED LIST changes: +AMPICILLIN SOD/SULBACTAM SOD 3 GM in D5W MINI-BAG PLUS 100 ML IV ONE; +LR 1,000 ML IV ONE; +dexameTHASONE 4 MG/ML 1ML VIAL (J1100 PER 1MG) IV ONE
[2020-02-09] MEDS ORDERED: ROCURONIUM BROMIDE 50 MG/5 ML VIAL As Ordered ONE (07:08)
[2020-02-09] MEDS ORDERED: SUGAMMADEX SODIUM 500 MG/5 ML VIAL (BRIDION) As Ordered ONE (07:08)
[2020-02-09] MEDS ORDERED: propofoL 200 MG/20 ML VIAL As Ordered ONE ×2 (07:08→07:42)
[2020-02-09] MEDS ORDERED: LIDOCAINE 2% 100MG/5ML SDV (FOR ANES.) As Ordered ONE (07:08)
[2020-02-09] MEDS ORDERED: ONDANSETRON 4MG/2ML VIAL As Ordered ONE (07:08)
[2020-02-09] MEDS ORDERED: KETOROLAC 60MG 2ML VIAL As Ordered ONE (07:08)
[2020-02-09] MEDS ORDERED: dexameTHASONE 4 MG/ML 1ML VIAL (J1100 PER 1MG) As Ordered ONE ×2 (07:08→07:55)
[2020-02-09] MEDS ORDERED: fentaNYL 100 MCG/2 ML INJECTION (J3010) As Ordered ONE ×3 (07:10→11:06)
[2020-02-09] MEDS ORDERED: MIDAZOLAM INJ 2MG/2ML VIAL (J2250 PER 1MG) As Ordered ONE (07:10)
[2020-02-09] MEDS ORDERED: CHLORHEXIDINE GLUCONATE 0.12 % 15ML UDC (PERIDEX ORAL RINSE) As Ordered ONE (07:12)
[2020-02-09] MEDS ORDERED: LIDOCAINE 2% W/ EPINEPHRINE 1.7 ML DENTAL INJ As Ordered ONE ×2 (07:13→09:29)
[2020-02-09] MEDS ORDERED: THROMBIN SOLN 5,000 UNITS VIAL As Ordered ONE (09:51)
[2020-02-09 10:24] LABS: HEMATOCRIT 38.1 % (42.0-52.0); HEMOGLOBIN 12.7 g/dl (13.5-17.5); MEAN CORPUSCULAR HEMOGLOBIN 30.8 pg (27.0-33.0); MEAN CORPUSCULAR HGB CONC 33.3 g/dl (32.0-36.5); MEAN CORPUSCULAR VOLUME 92.3 fl (80.0-96.0); PLATELET COUNT, AUTOMATED 200 10^3/uL (150-450); RED BLOOD COUNT 4.13 10^6/uL (4.30-6.10); WHITE BLOOD COUNT 8.2 10^3/uL (4.0-10.0)
[2020-02-09] MEDS: fentaNYL 100 MCG/2 ML INJECTION (J3010) IV PRN ×4 (11:07→11:22)
[2020-02-09] MEDS ORDERED: ONDANSETRON 4MG/2ML VIAL IV PRN (11:15)
[2020-02-09] MEDS ORDERED: LR 1,000 ML IV SCH (11:15)
[2020-02-09] MEDS ORDERED: oxyCODONE 5MG TAB PO PRN (11:15)
[2020-02-09 12:15] VITALS: BP 127/77
--- NOTE | 2020-02-10 13:48 | RO ---
DATE OF OPERATION: 02/09/2020 SURGEON: Jai Olivares DMD, MD PREOPERATIVE DIAGNOSES: * Moderate to severe Parkinsons disease, severe dental anxiety. * Failing and hopeless condition including teeth #3, 4, 5, 6,7, 8, 9, 10, 11, 14, 15, 17, 18, 19, 20, 21, 22, 23, 24, 25, 26, 27, 28 and 30, 31, 32. POSTOPERATIVE DIAGNOSES: Status post: * Moderate to severe Parkinsons disease, severe dental anxiety. * Failing and hopeless condition including teeth #3, 4, 5, 6,7, 8, 9, 10, 11, 14, 15, 17, 18, 19, 20, 21, 22, 23, 24, 25, 26, 27, 28 and 30, 31, 32. PROCEDURE PERFORMED: Extraction of all aforementioned teeth and four quadrant alveoplasty. ANESTHESIA USED: General endotracheal anesthesia via nasal BAIRON. SPECIMEN: Teeth for gross only. INDICATIONS FOR SURGERY: Mr. Bower is a pleasant 44-year-old male referred to my office for evaluation for extraction of all of these remaining teeth in preparation for future denture fabrication. His past medical history is significant for moderate to severe Parkinsons disease with tardive dyskinesia as well as hopeless and grossly decayed dentition. I offered the patient nitrous oxide and local anesthesia in office setting versus general anesthesia in OR setting and he would like to have the procedure done with the latter as in general anesthesia in OR setting. Complete history and physical and consent form were obtained and are in the patients chart. DESCRIPTION OF PROCEDURE: The patient presented to preop holding area and last minute questions were addressed. The H&P and consent were updated. At that point the patient was taken back to the operating room, he was laid supine on the operating room table. Ulnar nerve protectors were placed, noninvasive cardiac monitoring applied. At that point the patient underwent general anesthesia and was intubated with nasal BAIRON. He was prepped and draped in usual sterile fashion. Time out procedure was performed identifying patient, procedure and any other precautions. Preoperative antibiotics and steroids were administered. At this point a moist throat pack was inserted into the patients oropharynx followed by administration of 2% Lidocaine with 1:100,000 Epinephrine as multiple infiltrations and blocks. Full thickness flap was released to grasp teeth #3, 4, 5, 6, 7, 8, 9, 10, 11 as well as 14 and 15. Flaps were reflected to expose facial cortices, buccal bone was removed from sites #3, 4, 5, 6, 7, 8, 9, 10, 11, 14, 15. The teeth were luxated and delivered. All the sockets were curetted and irrigated, no sinus exposure. Alveoplasty was performed to remove all undercuts and sharp bony areas to smooth finish. Gelfoam was placed in each socket and flaps were closed with interrupted 3-0 chromic sutures. At this point attention was given to teeth #17, 18, 19, 20, 21, 22, 23, 24, 25, 26, 27, 28, 29, 30, 31, 32 where a full thickness flap in sulcular fashion was raised in each tooth area with bilateral posterior release incisions as hockey- stick extensions, buccal bone was then removed from each individual tooth area from #[address] to #32. Teeth were luxated and delivered. All the sockets were curetted and irrigated. Alveoplasty was performed in both lower quadrants and all undercuts and sharp bony areas were removed. All sockets were curetted again, inferior alveolar nerve was not noted, lingual cortices were intact. Gelfoam was placed in each socket and the flaps were closed with interrupted 3-0 chromic sutures. At this point hemostasis was verified for over 10-15 minutes. The oral cavity was irrigated and suctioned. The throat pack was removed. The patient was awakened from general anesthesia and taken back to the PACU under the care of anesthesiologist and myself. COMPLICATIONS: None to mention at the time of surgery. ESTIMATED BLOOD LOSS: About 150 mL. DRAINS: There were no drains placed. MTDD
== END 2020-02-09 13:22 | disposition home or self-care (01) ==
LOC: M SDC 06:15
PROVIDERS: ATTEND Dentist
DX: K02.9 Dental caries, unspecified (principal); G20 Parkinson's disease; F41.9 Anxiety disorder, unspecified; Z79.899 Other long term (current) drug therapy
CPT/HCPCS: 85027; 88300; D7210; D7310; D9223; J1100; J1885; J2250; J2405; J3010

== ENCOUNTER 2020-03-01 21:19 | Emergency (ER) | payer OTHER ==
[~2020-03-01] VITALS: Ht 200.7 cm; Wt 113.6 kg
[~2020-03-01 21:19] MED LIST changes: -AMPICILLIN SOD/SULBACTAM SOD 3 GM in D5W MINI-BAG PLUS 100 ML IV ONE; -LR 1,000 ML IV ONE; -dexameTHASONE 4 MG/ML 1ML VIAL (J1100 PER 1MG) IV ONE
--- NOTE | 2020-03-01 21:46 | REPVR ---
PROCEDURE INFORMATION: Exam: XR Chest, 1 View Exam date and time: 03/01/2020 9:41 PM Age: 44 years old Clinical indication: Other: AMS; Additional info: Altered mental status TECHNIQUE: Imaging protocol: XR of the chest Views: 1 view. COMPARISON: [place] CT Chest with contrast 07/19/2019 9:42 AM FINDINGS: Lungs: Minimal right base infiltrate or atelectasis. Pleural space: Unremarkable. No pleural effusion. No pneumothorax. Heart/Mediastinum: Unremarkable. No cardiomegaly. Bones/joints: Unremarkable. IMPRESSION: 1. Minimal right base infiltrate or atelectasis. 2. Otherwise negative chest. Electronically signed by: Austen Freitas On 03/01/2020 21:46:10 PM
[2020-03-01 21:53] LABS: BASO # 0.1 10^3/uL (0.0-0.2); EOS # 0.7 10^3/uL (0.0-0.5); EOS % 9.7 % (0.0-3.0); HEMOGLOBIN 12.7 g/dl (13.5-17.5); LYMPH # 3.1 10^3/uL (1.5-5.0); LYMPH % 40.7 % (24.0-44.0); MEAN CORPUSCULAR HEMOGLOBIN 30.5 pg (27.0-33.0); MEAN CORPUSCULAR HGB CONC 31.8 g/dl (32.0-36.5); MEAN CORPUSCULAR VOLUME 95.9 fl (80.0-96.0); MONO # 0.6 10^3/uL (0.0-0.8); MONO % 7.2 % (0.0-5.0); NEUTROPHILS # 3.2 10^3/uL (1.5-8.5); NEUTROPHILS % 41.1 % (36.0-66.0); PLATELET COUNT, AUTOMATED 285 10^3/uL (150-450); RED BLOOD COUNT 4.17 10^6/uL (4.30-6.10); WHITE BLOOD COUNT 7.7 10^3/uL (4.0-10.0)
--- NOTE | 2020-03-01 22:13 | REPVR ---
PROCEDURE INFORMATION: Exam: CT Head Without Contrast Exam date and time: 03/01/2020 9:58 PM Age: 44 years old Clinical indication: Altered mental status/memory loss TECHNIQUE: Imaging protocol: Computed tomography of the head without contrast. Radiation optimization: All CT scans at this facility use at least one of these dose optimization techniques: automated exposure control; mA and/or kV adjustment per patient size (includes targeted exams where dose is matched to clinical indication); or iterative reconstruction. COMPARISON: CT Head without contrast 07/19/2019 9:38 AM FINDINGS: Brain: Normal. No hemorrhage. Unremarkable white matter. No mass effect. Cerebral ventricles: The left lateral ventricle is slightly larger than the right consistent with normal variant and is unchanged from the prior study. Bones/joints: Unremarkable. No acute fracture. Paranasal sinuses: Visualized sinuses are unremarkable. No fluid levels. Mastoid air cells: Visualized mastoid air cells are well aerated. Soft tissues: Unremarkable. IMPRESSION: Negative noncontrast head CT which is unchanged from 07/19/2019. Electronically signed by: Austen Freitas On 03/01/2020 22:13:44 PM
[2020-03-01 22:32] LABS: ALBUMIN 4.3 GM/DL (3.2-5.2); ALT/SGPT 30 U/L (12-78); BILIRUBIN,DIRECT 0.2 MG/DL (0.0-0.2); BILIRUBIN,TOTAL 0.6 MG/DL (0.2-1.0); BLOOD UREA NITROGEN 16 MG/DL (7-18); CALCIUM LEVEL 9.2 MG/DL (8.5-10.1); CARBON DIOXIDE LEVEL 18 MEQ/L (21-32); CHLORIDE LEVEL 104 MEQ/L (98-107); CK-MB VALUE MASS 3.2 NG/ML (<3.6); CPK CREATINE PHOSPHOKINASE 161 U/L (39-308); CREATININE FOR GFR 1.68 MG/DL (0.70-1.30); GLOMERULAR FILTRATION RATE 47.9 (>60); GLUCOSE, FASTING 94 MG/DL (70-100); MB/CK RELATIVE INDEX 1.99 (< OR =4); POTASSIUM SERUM 3.9 MEQ/L (3.5-5.1); SODIUM LEVEL 138 MEQ/L (136-145); THYROID STIMULATING HORMONE 0.532 uIU/ML (0.358-3.740); TOTAL PROTEIN 7.8 GM/DL (6.4-8.2); TROPONIN I < 0.02 NG/ML (< 0.10)
[2020-03-01 22:34] LABS: ETHYL ALCOHOL (ETHANOL) < 0.003 % (0.000-0.010)
[2020-03-01] MEDS ORDERED: levETIRAcetam INJection 1,000 MG in D5W 100 ML IV ONE (23:30)
[2020-03-01] MEDS ORDERED: KEPP1TAB2 PO (23:31)
[2020-03-01 23:35] LABS: AMPHETAMINES LEVEL URINE NEGATIVE (NEGATIVE); BARBITURATES URINE NEGATIVE (NEGATIVE); BENZODIAZEPINES URINE NEGATIVE (NEGATIVE); CANNABINOIDS URINE NEGATIVE (NEGATIVE); COCAINE METABOLITE URINE NEGATIVE (NEGATIVE); METHADONE URINE NEGATIVE (NEGATIVE); OPIATES URINE NEGATIVE (NEGATIVE); PHENCYCLIDINE URINE NEGATIVE (NEGATIVE)
[2020-03-02 00:15] VITALS: BP 121/58
--- NOTE | 2020-03-02 18:57 | ECGEPIP ---
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
== END 2020-03-02 00:34 | disposition home or self-care (01) ==
LOC: M ED 21:19
DX: R56.9 Unspecified convulsions (principal); F17.200 Nicotine dependence, unspecified, uncomplicated; Z91.012 Allergy to eggs; Z91.018 Allergy to other foods; Z88.8 Allergy status to other drugs, medicaments and biological substances
CPT/HCPCS: 70450; 71045; 80048; 80076; 80307; 81001; 82550; 82553; 84443; 85025; 93005; 93041; 94760; 96374; 99285; G0480; J1953

== ENCOUNTER → 2020-03-31 | Outpatient (CLI) | payer OTHER ==
[~2020-03-31] MED LIST changes: +KEPP1TAB2 PO
[2020-03-31 12:40] LABS: BASO # 0.1 10^3/uL (0.0-0.2); BASO % 0.9 % (0.0-1.0); EOS # 0.3 10^3/uL (0.0-0.5); EOS % 4.3 % (0.0-3.0); HEMATOCRIT 44.4 % (42.0-52.0); HEMOGLOBIN 13.9 g/dl (13.5-17.5); LYMPH # 2.3 10^3/uL (1.5-5.0); LYMPH % 28.5 % (24.0-44.0); MEAN CORPUSCULAR HEMOGLOBIN 29.3 pg (27.0-33.0); MEAN CORPUSCULAR HGB CONC 31.3 g/dl (32.0-36.5); MEAN CORPUSCULAR VOLUME 93.7 fl (80.0-96.0); MONO # 0.4 10^3/uL (0.0-0.8); MONO % 5.4 % (0.0-5.0); NEUTROPHILS # 4.8 10^3/uL (1.5-8.5); NEUTROPHILS % 60.5 % (36.0-66.0); PLATELET COUNT, AUTOMATED 265 10^3/uL (150-450); RED BLOOD COUNT 4.74 10^6/uL (4.30-6.10); WHITE BLOOD COUNT 7.9 10^3/uL (4.0-10.0)
[2020-03-31 13:00] LABS: APPEARANCE, URINE HAZY (CLEAR); BACTERIA, URINE AUTO NEGATIVE (NEGATIVE); BILIRUBIN, URINE AUTO NEGATIVE (NEGATIVE); BLOOD, URINE BLOOD NEGATIVE (NEGATIVE); CALCIUM OXALATE CRYSTALS SMALL; COLOR, URINE YELLOW (YELLOW); GLUCOSE, URINE (UA) AUTO NEGATIVE (NEGATIVE); KETONE, URINE AUTO NEGATIVE (NEGATIVE); LEUKOCYTE ESTERASE, URINE AUTO NEGATIVE (NEGATIVE); MUCUS, URINE LARGE (NEGATIVE); NITRITE, URINE AUTO NEGATIVE (NEGATIVE); PROTEIN, URINE AUTO 1+ mg/dL (NEGATIVE); RBC, URINE AUTO 3 /HPF (0-3); SPECIFIC GRAVITY URINE AUTO 1.027 (1.002-1.035); SQUAMOUS EPITHELIAL CELL UR AU 0 /HPF (0-6); UROBILINOGEN, URINE AUTO 0.2 mg/dL (0.0-2.0); WBC, URINE AUTO 2 /HPF (0-3)
[2020-03-31 13:08] LABS: BLOOD UREA NITROGEN 19 MG/DL (7-18); CALCIUM LEVEL 9.7 MG/DL (8.5-10.1); CARBON DIOXIDE LEVEL 30 MEQ/L (21-32); CHLORIDE LEVEL 104 MEQ/L (98-107); CREATININE FOR GFR 1.26 MG/DL (0.70-1.30); GLOMERULAR FILTRATION RATE > 60.0 (>60); GLUCOSE, FASTING 114 MG/DL (70-100); POTASSIUM SERUM 4.4 MEQ/L (3.5-5.1); SODIUM LEVEL 137 MEQ/L (136-145)
[2020-03-31 13:13] LABS: MAU/CREAT RATIO 10.7 MCG/MG (0.0-30.0)
== END ==
LOC: M WUC 09:16
PROVIDERS: ATTEND Family Medicine
DX: R56.9 Unspecified convulsions (principal); R30.0 Dysuria; R79.89 Other specified abnormal findings of blood chemistry

== ENCOUNTER → 2021-07-10 | Outpatient (CLI) | payer OTHER ==
[2021-07-10 16:59] LABS: BASO # 0.1 10^3/uL (0.0-0.2); BASO % 1.5 % (0.0-1.0); EOS # 0.4 10^3/uL (0.0-0.5); EOS % 7.7 % (0.0-3.0); HEMATOCRIT 42.3 % (42.0-52.0); HEMOGLOBIN 13.8 g/dl (13.5-17.5); LYMPH % 37.2 % (24.0-44.0); MEAN CORPUSCULAR HEMOGLOBIN 30.5 pg (27.0-33.0); MEAN CORPUSCULAR HGB CONC 32.6 g/dl (32.0-36.5); MEAN CORPUSCULAR VOLUME 93.4 fl (80.0-96.0); MONO # 0.4 10^3/uL (0.0-0.8); MONO % 8.1 % (2.0-8.0); NEUTROPHILS # 2.5 10^3/uL (1.5-8.5); NEUTROPHILS % 45.3 % (36.0-66.0); PLATELET COUNT, AUTOMATED 245 10^3/uL (150-450); RED BLOOD COUNT 4.53 10^6/uL (4.30-6.10); WHITE BLOOD COUNT 5.4 10^3/uL (4.0-10.0)
[2021-07-10 17:23] LABS: ALBUMIN 4.5 GM/DL (3.2-5.2); ALT/SGPT 16 U/L (12-78); BILIRUBIN,DIRECT 0.2 MG/DL (0.0-0.2); BILIRUBIN,TOTAL 0.7 MG/DL (0.2-1.0); BLOOD UREA NITROGEN 20 MG/DL (7-18); CALCIUM LEVEL 9.5 MG/DL (8.5-10.1); CARBON DIOXIDE LEVEL 34 MEQ/L (21-32); CHLORIDE LEVEL 107 MEQ/L (98-107); CREATININE FOR GFR 1.22 MG/DL (0.70-1.30); GLOMERULAR FILTRATION RATE > 60.0 (>60); GLUCOSE, FASTING 71 MG/DL (70-100); PHOSPHORUS LEVEL 3.9 MG/DL (2.5-4.9); POTASSIUM SERUM 4.4 MEQ/L (3.5-5.1); SODIUM LEVEL 141 MEQ/L (136-145); TOTAL PROTEIN 7.7 GM/DL (6.4-8.2)
== END ==
LOC: M PLALAB 15:22
PROVIDERS: ATTEND Podiatrist Foot & Ankle Surgery
DX: B35.1 Tinea unguium (principal)

== ENCOUNTER 2022-04-02 16:52 | Emergency (ER) | payer OTHER ==
[~2022-04-02] VITALS: Ht 200.7 cm; Wt 122.7 kg
[2022-04-02 17:43] LABS: BASO # 0.1 10^3/uL (0.0-0.2); BASO % 0.5 % (0.0-1.0); EOS # 0.1 10^3/uL (0.0-0.5); EOS % 0.7 % (0.0-3.0); HEMATOCRIT 45.3 % (42.0-52.0); HEMOGLOBIN 14.7 g/dl (13.5-17.5); LYMPH # 1.5 10^3/uL (1.5-5.0); LYMPH % 12.4 % (24.0-44.0); MEAN CORPUSCULAR HEMOGLOBIN 29.9 pg (27.0-33.0); MEAN CORPUSCULAR HGB CONC 32.5 g/dl (32.0-36.5); MEAN CORPUSCULAR VOLUME 92.1 fl (80.0-96.0); MONO # 0.8 10^3/uL (0.0-0.8); MONO % 6.3 % (2.0-8.0); NEUTROPHILS # 9.5 10^3/uL (1.5-8.5); NEUTROPHILS % 79.7 % (36.0-66.0); PLATELET COUNT, AUTOMATED 252 10^3/uL (150-450); RED BLOOD COUNT 4.92 10^6/uL (4.30-6.10)
[2022-04-02] MEDS ORDERED: levETIRAcetam INJection 1,500 MG in D5W 100 ML IV ONE (17:55)
[2022-04-02 18:07] LABS: BILIRUBIN,DIRECT 0.2 MG/DL (<0.4)
[2022-04-02 18:08] LABS: ALBUMIN 4.3 G/DL (3.2-5.2); ALKALINE PHOSPHATASE 83 U/L (46-116); ALT/SGPT 10 U/L (7.0-40); AST/SGOT 36 U/L (<34); BILIRUBIN,TOTAL 0.7 MG/DL (0.3-1.2); BLOOD UREA NITROGEN 16 MG/DL (9-23); CALCIUM LEVEL 9.7 MG/DL (8.5-10.1); CARBON DIOXIDE LEVEL 26 MMOL/L (20-31); CHLORIDE LEVEL 102 MMOL/L (98-107); CREATININE FOR GFR 1.15 MG/DL (0.70-1.30); GLOMERULAR FILTRATION RATE > 60.0 (>60); GLUCOSE, FASTING 102 MG/DL (60-100); POTASSIUM SERUM 4.9 MMOL/L (3.5-5.1); SODIUM LEVEL 136 MMOL/L (136-145); TOTAL PROTEIN 7.6 G/DL (5.7-8.2)
[2022-04-02 18:11] LABS: CK-MB VALUE MASS 2.7 NG/ML (<3.6); LIPASE 32 U/L (12-53)
[2022-04-02 18:13] LABS: CPK CREATINE PHOSPHOKINASE 720 U/L (46-171); MB/CK RELATIVE INDEX 0.37 (< OR =4)
[2022-04-02] MEDS ORDERED: AMAN100T4 (18:17)
[2022-04-02] MEDS ORDERED: CARB25TA9 (18:17)
[2022-04-02] MEDS ORDERED: TERB250T91 (18:17)
[2022-04-02] MEDS ORDERED: BRIV50TA (18:17)
[2022-04-02] MEDS ORDERED: KETOROLAC 30 MG/ML 1ML VIAL IV ONE (18:25)
[2022-04-02 20:36] LABS: CK-MB VALUE MASS 2.8 NG/ML (<3.6)
[2022-04-02 20:37] LABS: MB/CK RELATIVE INDEX 0.31 (< OR =4)
[2022-04-02] MEDS ORDERED: KEPP1TAB2 PO (21:31)
[2022-04-02 22:00] VITALS: BP 117/70
== END 2022-04-02 22:09 | disposition home or self-care (01) ==
LOC: M ED 16:52 → EDBD 16:52 → M ED 22:09
DX: R41.0 Disorientation, unspecified (principal); S22.000A Wedge compression fracture of unspecified thoracic vertebra, initial encounter for closed fracture; F43.10 Post-traumatic stress disorder, unspecified; G20 Parkinson's disease; Z87.891 Personal history of nicotine dependence; Z91.012 Allergy to eggs; Z91.011 Allergy to milk products; Z91.048 Other nonmedicinal substance allergy status; Z88.8 Allergy status to other drugs, medicaments and biological substances
CPT/HCPCS: 36415; 71045; 72072; 72110; 73030; 80048; 80076; 80180; 82550; 82553; 83690; 85025; 93005; 93041; 94760; 96365; 96375; 99285; J1885; J1953

== ENCOUNTER → 2022-04-11 | Outpatient (CLI) | payer OTHER ==
[~2022-04-11] MED LIST changes: +AMAN100T4; +BRIV50TA; +CARB25TA9; +TERB250T91
== END ==
LOC: M PLAIMG 13:27
PROVIDERS: ATTEND Family Medicine
DX: M54.2 Cervicalgia (principal)

== ENCOUNTER 2022-12-10 21:46 | Emergency (ER) | payer OTHER ==
[~2022-12-10] VITALS: Ht 200.7 cm; Wt 114.5 kg
[2022-12-10 22:06] VITALS: BP 110/61; TEMP 97.2; O2SAT 97
== END 2022-12-11 04:43 | disposition left against medical advice (07) ==
LOC: M ED 21:46
DX: Z53.21 Procedure and treatment not carried out due to patient leaving prior to being seen by health care provider (principal)

== ENCOUNTER → 2023-09-29 | Outpatient (CLI) | payer OTHER | LOC: M WUC 12:47 | PROVIDERS: ATTEND Nurse Practitioner Family | DX: M54.50 Low back pain, unspecified (principal) ==

== ENCOUNTER → 2023-12-24 | Day surgery (SDC) | payer OTHER ==
[~2023-12-24] VITALS: Ht 200.7 cm; Wt 109.6 kg
[~2023-12-24] MED LIST changes: +FAMO40TA3 PO; +FAMOTIDINE 20 MG TAB PO SCH; +LIDOCAINE 2% 100MG/5ML SDV (FOR ANES.) As Ordered ONE; +MIDAZOLAM INJ 2MG/2ML VIAL As Ordered ONE; +ONDANSETRON 4MG 2ML VIAL As Ordered ONE; +ROCURONIUM BROMIDE 50MG/5ML VIAL As Ordered ONE; +SUGAMMADEX SODIUM 500 MG/5 ML VIAL (BRIDION) As Ordered ONE; +fentaNYL 100 MCG/2 ML INJECTION As Ordered ONE; +propofoL 200 MG/20 ML VIAL As Ordered ONE
[2023-12-24] MEDS: PANTOPRAZOLE 40MG VIAL IV STA (23:04)
[2023-12-24 23:50] VITALS: BP 111/68; TEMP 97.1; O2SAT 94
== END | disposition home or self-care (01) ==
LOC: M ED 20:19 → M SDC 21:31
PROVIDERS: ATTEND Surgery
DX: T18.128A Food in esophagus causing other injury, initial encounter (principal)
CPT/HCPCS: 43247; 99284; J1100; J2250; J2405; J2470; J3010

== ENCOUNTER → 2024-03-03 | Outpatient (CLI) | payer OTHER ==
[~2024-03-03] MED LIST changes: -FAMOTIDINE 20 MG TAB PO SCH; -LIDOCAINE 2% 100MG/5ML SDV (FOR ANES.) As Ordered ONE; -MIDAZOLAM INJ 2MG/2ML VIAL As Ordered ONE; -ONDANSETRON 4MG 2ML VIAL As Ordered ONE; -ROCURONIUM BROMIDE 50MG/5ML VIAL As Ordered ONE; -SUGAMMADEX SODIUM 500 MG/5 ML VIAL (BRIDION) As Ordered ONE; -fentaNYL 100 MCG/2 ML INJECTION As Ordered ONE; -propofoL 200 MG/20 ML VIAL As Ordered ONE
[2024-03-03 15:33] LABS: ALBUMIN 4.3 G/DL (3.2-5.2); ALKALINE PHOSPHATASE 74 U/L (40-129); ALT/SGPT 14 U/L (7.0-40); AST/SGOT 17 U/L (<34); BILIRUBIN,TOTAL 0.6 MG/DL (0.3-1.2); BLOOD UREA NITROGEN 24 MG/DL (9-23); CARBON DIOXIDE LEVEL 28 MMOL/L (20-31); CHLORIDE LEVEL 107 MMOL/L (98-107); CHOLESTEROL LEVEL 176 MG/DL (<200); CHOLESTEROL RISK RATIO 3.78 (<5); CREATININE FOR GFR 1.18 MG/DL (0.70-1.30); GLOMERULAR FILTRATION RATE > 60.0 (>60); GLUCOSE, FASTING 86 MG/DL (60-100); HDL CHOLESTEROL 46.5 MG/DL (>40); LDL CHOLESTEROL 111.9 MG/DL (<100); NON-HDL-C 129.5 MG/DL; POTASSIUM SERUM 4.7 MMOL/L (3.5-5.1); SODIUM LEVEL 140 MMOL/L (136-145); TOTAL PROTEIN 7.7 G/DL (5.7-8.2); TRIGLYCERIDES LEVEL 88 MG/DL (<150)
== END ==
LOC: M PLALAB 10:43
PROVIDERS: ATTEND Family Medicine
DX: E66.3 Overweight (principal)

== ENCOUNTER 2024-05-07 19:09 | Emergency (ER) | payer OTHER ==
[~2024-05-07] VITALS: Ht 200.7 cm; Wt 104.9 kg
[~2024-05-07 19:09] MED LIST changes: -BRIV50TA; +BRIV50TA PO; -CARB25TA9; +CARB25TA9 PO; +CYCL5TAB4 PO
[2024-05-07 19:16] VITALS: BP 116/76; TEMP 97.5; O2SAT 97
== END 2024-05-07 21:11 | disposition left against medical advice (07) ==
LOC: M ED 19:09
DX: Z53.21 Procedure and treatment not carried out due to patient leaving prior to being seen by health care provider (principal)

== ENCOUNTER 2025-02-20 23:12 | Day surgery (SDC) | payer OTHER ==
[~2025-02-20] VITALS: Ht 200.7 cm; Wt 102.8 kg
[~2025-02-20 23:12] MED LIST changes: -AMAN100T4; +AMAN100T8
[2025-02-21] VITALS (7 sets, daily range): BP systolic 94–112; BP diastolic 55–62; TEMP 97.8–98.4; O2SAT 91–98
[2025-02-21] MEDS: NS 500 ML IV ONE (00:12)
[2025-02-21] MEDS: GLUCAGON INJ 1 MG VIAL IV STA (00:14)
[2025-02-21 00:19] LABS: BASO # 0.1 10^3/uL (0.0-0.2); BASO % 1.1 % (0.0-1.0); EOS # 0.2 10^3/uL (0.0-0.5); EOS % 3.0 % (0.0-3.0); LYMPH # 1.8 10^3/uL (1.5-5.0); LYMPH % 25.0 % (24.0-44.0); MONO # 0.5 10^3/uL (0.0-0.8); MONO % 7.2 % (2.0-8.0); NEUTROPHILS # 4.4 10^3/uL (1.5-8.5); NEUTROPHILS % 63.6 % (36.0-66.0); PLATELET COUNT, AUTOMATED 239 10^3/uL (150-450)
[2025-02-21 00:43] LABS: CALCIUM LEVEL 9.7 MG/DL (8.5-10.1); CARBON DIOXIDE LEVEL 29.0 MMOL/L (20-31); CHLORIDE LEVEL 105.0 MMOL/L (98-107); CREATININE FOR GFR 1.35 MG/DL (0.70-1.30); GLOMERULAR FILTRATION RATE 65.2 (>60); MAGNESIUM LEVEL 2.0 MG/DL (1.8-2.4); POTASSIUM SERUM 4.3 MMOL/L (3.5-5.1); SODIUM LEVEL 145.0 MMOL/L (136-145)
[2025-02-21 00:54] LABS: INR 0.96
[2025-02-21 01:30] LABS: CK-MB VALUE MASS 9.7 NG/ML (<3.6)
[2025-02-21 01:36] LABS: CPK CREATINE PHOSPHOKINASE 565.0 U/L (46-171); MB/CK RELATIVE INDEX 1.71 (< OR =4)
[2025-02-21] MEDS ORDERED: NAPR220C14 PO (01:47)
[2025-02-21] MEDS ORDERED: ACET-907 PO (01:47)
[2025-02-21] MEDS ORDERED: HOME MED LIST COMPLETE! XX SCH (01:50)
[2025-02-21] MEDS ORDERED: LIDOCAINE 2% 100 MG/5 ML SDV (FOR ANES.) As Ordered ONE (02:16)
[2025-02-21] MEDS ORDERED: MIDAZOLAM INJ 2 MG/2 ML VIAL As Ordered ONE (02:16)
[2025-02-21] MEDS ORDERED: dexAMETHasone 4 MG/ML 1 ML VIAL As Ordered ONE (02:16)
[2025-02-21] MEDS ORDERED: ROCURONIUM BROMIDE 50MG/5ML VIAL As Ordered ONE (02:16)
[2025-02-21] MEDS ORDERED: ONDANSETRON 4MG/2ML VIAL As Ordered ONE (02:16)
[2025-02-21] MEDS ORDERED: SUCCINYLCHOLINE 100MG/5ML SYRINGE As Ordered ONE (02:17)
[2025-02-21] MEDS ORDERED: SUGAMMADEX SODIUM 200 MG/2 ML VIAL As Ordered ONE (02:21)
[2025-02-21] MEDS ORDERED: ACETAMINOPHEN 1000MG/100ML IV BAG As Ordered ONE (02:38)
[2025-02-21] MEDS ORDERED: PROTPAK PO (02:51)
== END 2025-02-21 08:52 | disposition home or self-care (01) ==
LOC: M ED 23:12 → M SDC 02-21 01:03 → M MS4PR 02-21 03:50 → M SDC 02-21 08:52
PROVIDERS: ATTEND Surgery
DX: T18.128A Food in esophagus causing other injury, initial encounter (principal); K29.70 Gastritis, unspecified, without bleeding; K21.9 Gastro-esophageal reflux disease without esophagitis; W44.F3XA Food entering into or through a natural orifice, initial encounter; G20.A1 Parkinson's disease without dyskinesia, without mention of fluctuations; Y93.9 Activity, unspecified; Z79.899 Other long term (current) drug therapy; Y92.9 Unspecified place or not applicable; Z91.018 Allergy to other foods; Z91.0120 Allergy to eggs, unspecified; Z91.0110 Allergy to milk products, unspecified; Z88.8 Allergy status to other drugs, medicaments and biological substances
CPT/HCPCS: 43247; 76010; 80048; 82550; 82553; 83735; 84484; 85025; 85610; 85730; 99284; J0131; J0330; J1100; J1610; J2250; J2405; J3010